=== PATIENT | male | born 1950 | race Two or more races ===

== ENCOUNTER 2020-08-19 13:30 | Outpatient (AMBR) | payer MEDICARE, MEDICAID, SELFPAY ==
--- NOTE | 2020-07-30 13:37 | PT.OIERPT ---
PT OP Initial Eval Patient Information Visit Reasons: post op left shoulder Start of Care: 07/30/20 Initial Assessment Subjective Pt is 70 yr old dutch speaking male s/p arthroscopic left shoulder posterior labral repair, arthroscopic left shoulder biceps tenodesis, arthroscopic left shoulder subacromial decompression, removal of loose bodies glenohumeral joint on 07/01/20 presents to therapy with L abduction sling. He had injured the shoulder lifting a heavy pipe about 6 months ago. PMH: HTN Imaging: X-ray in EMR Pt goal: to reach OH and get L shoulder strength back. Objective L shoulder AROM: FF: 45 deg Abd: 30 deg ER: -5 deg Strength: 3-/5 in all planes PROM: end-range pain with capsular tightness Elbow ROM: full extension Assessment Pt presentation consistent with referring Dx of post op labral repair, SAD, of L shoulder, and biceps tenodesis. ROM limited in capsular pattern with pain that limits end-range tolerance into all planes but especially ER and IR. Pt requires skilled therapy in order to reduce pain, improve strength and ROM and has good rehab potential. Eval followed by HEP Short Term and Marketer Goals 1. Ind with HEP 2. Improved AROM of L shoulder to 135 deg FF, 125 deg abduction and 90 deg ER 3. Improved HBB ROM to L3 4. Pt will reach OH x10 with <=4/10 pain Treatment Plan 1. Manual therapy 2. Therex 3. Modalities as indicated, moist heat pack, ice, electrical stimulation, Frequency and Duration 2x a week for 8 weeks Certification Dates: 07/30/20 to 10/29/20 Office Procedures PT Procedures PT Date of Service: 07/30/20 OP PT Eval Mod Complex 30 minutes: Yes
--- NOTE | 2020-07-31 14:26 | PT.ODAYNRPT ---
PT Outpatient Daily Note Date of Service: 07/31/20 OP Daily Note Visit Reasons: post op left shoulder Outpatient Physical Therapy Treatment Date: 07/31/20 Subjective: Same as time of evaluation Objective: See f/S for therex Assessment: Pt had pain with AAROM today into ERot and abduction and has capsular limitations into Erot. Plan: Continue per POC Length of Time (minutes) of Treatment: 30 Minutes Office Procedures PT Procedures PT Date of Service: 07/31/20 Therapeutic Exercise 30 minutes: Yes PT Procedures PT Date of Service: 07/30/20 OP PT Eval Mod Complex 30 minutes: Yes
--- NOTE | 2020-08-05 14:47 | PT.ODAYNRPT ---
PT Outpatient Daily Note Date of Service: 08/05/20 OP Daily Note Visit Reasons: post op left shoulder Outpatient Physical Therapy Treatment Date: 08/05/20 Subjective: Doing HEP Objective: See f/S for therex MT: PPM into FF, abd and Erot to first resistance x5' Assessment: Poor carryover from last visit with therex. Very limited Erot PROM and pain limited MT tolerance today. Pt had pain with AAROM today into ERot and abduction and has capsular limitations into Erot. Plan: Continue per POC Length of Time (minutes) of Treatment: 30 Minutes Office Procedures PT Procedures PT Date of Service: 07/31/20 Therapeutic Exercise 30 minutes: Yes PT Procedures PT Date of Service: 07/30/20 OP PT Eval Mod Complex 30 minutes: Yes PT Procedures PT Date of Service: 08/05/20 Therapeutic Exercise 30 minutes: Yes
--- NOTE | 2020-08-07 13:21 | PT.ODAYNRPT ---
PT Outpatient Daily Note Date of Service: 08/07/20 OP Daily Note Visit Reasons: post op left shoulder Outpatient Physical Therapy Treatment Date: 08/07/20 Subjective: Not doing HEP of ROM with wand that he was given first day Objective: See f/S for therex MT: PPM into FF, abd and Erot to first resistance x5' Erot PROM: neutral Assessment: Poor carryover from last visit with therex. Very limited Erot PROM and pain limited MT tolerance today. Pt had pain with AAROM today into ERot and abduction and has capsular limitations into Erot. Plan: Continue per POC Length of Time (minutes) of Treatment: 30 Minutes Office Procedures PT Procedures PT Date of Service: 07/31/20 Therapeutic Exercise 30 minutes: Yes PT Procedures PT Date of Service: 07/30/20 OP PT Eval Mod Complex 30 minutes: Yes PT Procedures PT Date of Service: 08/05/20 Therapeutic Exercise 30 minutes: Yes
--- NOTE | 2020-08-13 13:50 | PT.ODAYNRPT ---
PT Outpatient Daily Note Date of Service: 08/13/20 OP Daily Note Visit Reasons: post op left shoulder Outpatient Physical Therapy Treatment Date: 08/13/20 Subjective: He was doing HEP of ROM with wand into Erot and felt a pop in L shoulder and pain but today it's not hurting. Objective: See f/S for therex Erot PROM: 25 deg Assessment: Improved Erot PROM since last visit. Pt had pain with AAROM today into ERot and abduction at end-range and has capsular limitations into Erot. Plan: Continue per POC Length of Time (minutes) of Treatment: 30 Minutes Office Procedures PT Procedures PT Date of Service: 07/31/20 Therapeutic Exercise 30 minutes: Yes PT Procedures PT Date of Service: 08/07/20 Therapeutic Exercise 30 minutes: Yes PT Procedures PT Date of Service: 07/30/20 OP PT Eval Mod Complex 30 minutes: Yes PT Procedures PT Date of Service: 08/05/20 Therapeutic Exercise 30 minutes: Yes PT Procedures PT Date of Service: 08/13/20 Therapeutic Exercise 30 minutes: Yes
--- NOTE | 2020-08-15 14:47 | PTNOTE_ITS ---
PT Outpatient Daily Note Date of Service: 08/15/20 OP Daily Note Visit Reasons: post op left shoulder Outpatient Physical Therapy Treatment Date: 08/15/20 Subjective: He was doing HEP of ROM with wand into Erot and felt a pop in L shoulder and pain but today it's not hurting. Objective: See f/S for therex MT: PPM into Ff, abd and Erot x7' to end-range Erot PROM: 35 deg Assessment: Improved Erot and FF PROM since last visit. Pt has pain at end- range with AAROM into abduction and Erot. Plan: Continue per POC Length of Time (minutes) of Treatment: 30 Minutes Office Procedures PT Procedures PT Date of Service: 07/31/20 Therapeutic Exercise 30 minutes: Yes PT Procedures PT Date of Service: 08/07/20 Therapeutic Exercise 30 minutes: Yes PT Procedures PT Date of Service: 08/15/20 Therapeutic Exercise 30 minutes: Yes PT Procedures PT Date of Service: 07/30/20 OP PT Eval Mod Complex 30 minutes: Yes PT Procedures PT Date of Service: 08/05/20 Therapeutic Exercise 30 minutes: Yes PT Procedures PT Date of Service: 08/13/20 Therapeutic Exercise 30 minutes: Yes
--- NOTE | 2020-08-19 19:48 | PT.ODAYNRPT ---
PT Outpatient Daily Note Date of Service: 08/19/20 OP Daily Note Visit Reasons: post op left shoulder Outpatient Physical Therapy Treatment Date: 08/19/20 Subjective: Pain limits him with HEP Objective: See f/S for therex MT: PPM into Ff, abd and Erot x7' to end-range Erot PROM: 35 deg Assessment: Improved Erot and FF PROM since last visit but pain limits end range tolerance and he has capsular tightness. Pt has pain at end-range with AAROM into abduction and Erot. Plan: Continue per POC Length of Time (minutes) of Treatment: 30 Minutes Office Procedures PT Procedures PT Date of Service: 07/31/20 Therapeutic Exercise 30 minutes: Yes PT Procedures PT Date of Service: 08/07/20 Therapeutic Exercise 30 minutes: Yes PT Procedures PT Date of Service: 08/15/20 Therapeutic Exercise 30 minutes: Yes PT Procedures PT Date of Service: 07/30/20 OP PT Eval Mod Complex 30 minutes: Yes PT Procedures PT Date of Service: 08/05/20 Therapeutic Exercise 30 minutes: Yes PT Procedures PT Date of Service: 08/13/20 Therapeutic Exercise 30 minutes: Yes PT Procedures PT Date of Service: 08/19/20 Therapeutic Exercise 30 minutes: Yes
== END 2020-08-23 23:59 | disposition home or self-care (01) ==
PROVIDERS: PCP Family Medicine; Referring Provider Family Medicine; Visit Provider Orthopaedic Surgery
DX: M25.512 Pain in left shoulder (principal); I10 Essential (primary) hypertension
CPT/HCPCS: 97110; 97162

== ENCOUNTER 2020-09-18 14:25 | Outpatient (AMBR) | payer MEDICARE, MEDICAID, SELFPAY ==
--- NOTE | 2020-08-27 15:04 | PT.ODAYNRPT ---
PT Outpatient Daily Note Date of Service: 08/27/20 OP Daily Note Visit Reasons: post op left shoulder Outpatient Physical Therapy Treatment Date: 08/27/20 Subjective: Pt supported his upper body weight on the L shoulder with outstretched hand the other day and felt sharp pain in the shoulder for a few days. He feels relief with the sling but is not wearing it today. Objective: See F/S for therex Assessment: Pt has difficulty with AROM above shoulder height but with pulleys he can get above shoulder height Plan: Continue rer POC Length of Time (minutes) of Treatment: 30 Minutes Office Procedures PT Procedures PT Date of Service: 08/27/20 Therapeutic Exercise 30 minutes: Yes
--- NOTE | 2020-09-11 10:45 | PT.ODS1RPT ---
PT OP Progress/Discharge Note Date of Service: 09/11/20 Progress Note/DC Note Progress Note/Discharge Note: Progress Note Patient Information Visit Reasons: post op left shoulder Service Continue Service or Discharge: Continue Service Discharge Date: 09/11/20 Status Subjective: Pt returns to therapy after a break since 08/27 because he had a setback when he supported his upper body weight on the L shoulder with outstretched hand the other day and felt sharp pain in the shoulder for a few days. He was given a steroid shot in the L shoulder which has decreased pain. Objective: L shoulder AROM: FF: 120 deg Abd: 120 deg Erot: 45 deg Assessment: Pt has attended the evaluation and 8 Rx visits and made good progress with A/PROM. He can reach up OH with some weakness but is transitioning to AROM well without significant pain. He would benefit from continued therapy in order to continue with AROM and then transition to strengthening per protocol. Plan: Continue per POC Office Procedures PT Procedures PT Date of Service: 09/11/20 Therapeutic Exercise 30 minutes: Yes PT Procedures PT Date of Service: 08/27/20 Therapeutic Exercise 30 minutes: Yes
--- NOTE | 2020-09-16 19:18 | PT.ODAYNRPT ---
PT Outpatient Daily Note Date of Service: 09/16/20 OP Daily Note Visit Reasons: post op left shoulder Outpatient Physical Therapy Treatment Date: 09/16/20 Subjective: Low L shoulder pain today Objective: See F/S for therex Assessment: He can reach up OH with some weakness but is transitioning to AROM well without significant pain. He would benefit from continued therapy in order to continue with AROM and then transition to strengthening per protocol. Plan: Continue per POC Length of Time (minutes) of Treatment: 30 Minutes Office Procedures PT Procedures PT Date of Service: 09/11/20 Therapeutic Exercise 30 minutes: Yes PT Procedures PT Date of Service: 08/27/20 Therapeutic Exercise 30 minutes: Yes PT Procedures PT Date of Service: 09/16/20 Therapeutic Exercise 30 minutes: Yes
--- NOTE | 2020-09-18 18:15 | PT.ODAYNRPT ---
PT Outpatient Daily Note Date of Service: 09/18/20 OP Daily Note Visit Reasons: post op left shoulder Outpatient Physical Therapy Treatment Date: 09/18/20 Subjective: Low L shoulder pain today Objective: See F/S for therex Assessment: He can reach up OH with some weakness but is transitioning to AROM well without significant pain. He would benefit from continued therapy in order to continue with AROM and then transition to strengthening per protocol. Plan: Continue per POC Length of Time (minutes) of Treatment: 30 Minutes Office Procedures PT Procedures PT Date of Service: 09/11/20 Therapeutic Exercise 30 minutes: Yes PT Procedures PT Date of Service: 08/27/20 Therapeutic Exercise 30 minutes: Yes PT Procedures PT Date of Service: 09/16/20 Therapeutic Exercise 30 minutes: Yes PT Procedures PT Date of Service: 09/18/20 Therapeutic Exercise 30 minutes: Yes
== END 2020-09-23 23:59 | disposition home or self-care (01) ==
PROVIDERS: PCP Family Medicine; Referring Provider Family Medicine; Visit Provider Family Medicine
DX: M25.512 Pain in left shoulder (principal); I10 Essential (primary) hypertension
CPT/HCPCS: 97110

== ENCOUNTER 2020-10-17 14:30 | Outpatient (AMBR) | payer MEDICARE, MEDICAID, SELFPAY ==
--- NOTE | 2020-09-26 18:56 | PT.ODAYNRPT ---
PT Outpatient Daily Note Date of Service: 09/26/20 OP Daily Note Visit Reasons: post op left shoulder Outpatient Physical Therapy Treatment Date: 09/26/20 Subjective: Pt reports difficulty with reaching up OH and lifting light objects with L shoulder Objective: See f/S for therex Assessment: Pt has transitioned to AROM but made slow progress with AROM goals due to continued L shoulder irritability. He can reach through ROM with 1 lb dumbell in supine but has limited ROM into abduction and Erot. Plan: Improve AROM and transition to strengthening Length of Time (minutes) of Treatment: 30 Minutes Office Procedures PT Procedures PT Date of Service: 09/26/20 Therapeutic Exercise 30 minutes: Yes
--- NOTE | 2020-10-01 16:50 | PT.ODAYNRPT ---
PT Outpatient Daily Note Date of Service: 10/01/20 OP Daily Note Visit Reasons: post op left shoulder Outpatient Physical Therapy Treatment Date: 10/01/20 Subjective: Pt reports difficulty with reaching up OH and lifting light objects with L shoulder Objective: See f/S for therex Assessment: Pt has transitioned to AROM and now resistive therex with mild L shoulder irritability. He can reach through ROM with 2 lb dumbell in supine but has limited ROM into abduction and Erot. Plan: Continue to transition to strengthening Length of Time (minutes) of Treatment: 30 Minutes Office Procedures PT Procedures PT Date of Service: 09/26/20 Therapeutic Exercise 30 minutes: Yes PT Procedures PT Date of Service: 10/01/20 Therapeutic Exercise 30 minutes: Yes
--- NOTE | 2020-10-03 18:35 | PT.ODAYNRPT ---
PT Outpatient Daily Note Date of Service: 10/03/20 OP Daily Note Visit Reasons: post op left shoulder Outpatient Physical Therapy Treatment Date: 10/03/20 Subjective: Pt reports difficulty with reaching up OH and lifting light objects with L shoulder Objective: See f/S for therex Assessment: Pt has transitioned to AROM and now resistive therex with mild L shoulder irritability. He can reach through ROM with 2 lb dumbell in supine but has limited ROM into abduction and Erot. Plan: Continue to transition to strengthening Length of Time (minutes) of Treatment: 30 Minutes Office Procedures PT Procedures PT Date of Service: 09/26/20 Therapeutic Exercise 30 minutes: Yes PT Procedures PT Date of Service: 10/01/20 Therapeutic Exercise 30 minutes: Yes PT Procedures PT Date of Service: 10/03/20 Therapeutic Exercise 30 minutes: Yes
--- NOTE | 2020-10-15 16:22 | PT.ODAYNRPT ---
PT Outpatient Daily Note Date of Service: 10/15/20 OP Daily Note Visit Reasons: post op left shoulder Outpatient Physical Therapy Treatment Date: 10/15/20 Subjective: Pt reports difficulty with reaching up OH and lifting light objects with L shoulder. He is having ABDIRAHMAN tomorrow afternoon. Objective: See f/S for therex Assessment: Pt has transitioned to strengthening with resistive therex with mild L shoulder irritability. He can reach through ROM with 2 lb dumbell in supine but has limited ROM into abduction and Erot. Plan: Continue after ABDIRAHMAN Length of Time (minutes) of Treatment: 30 Minutes Office Procedures PT Procedures PT Date of Service: 09/26/20 Therapeutic Exercise 30 minutes: Yes PT Procedures PT Date of Service: 10/01/20 Therapeutic Exercise 30 minutes: Yes PT Procedures PT Date of Service: 10/15/20 Therapeutic Exercise 30 minutes: Yes PT Procedures PT Date of Service: 10/03/20 Therapeutic Exercise 30 minutes: Yes
--- NOTE | 2020-10-17 16:36 | PT.ODS1RPT ---
PT OP Progress/Discharge Note Date of Service: 10/17/20 Progress Note/DC Note Progress Note/Discharge Note: Progress Note Patient Information Visit Reasons: post op left shoulder Service Continue Service or Discharge: Continue Service Status Subjective: Pt reports some shoulder soreness after ABDIRAHMAN yesterday Objective: L shoulder ArOM; FF: 125 deg Abd: 120 deg Erot: 50 deg Strength: 4-/5 in all planes Assessment: Pt has attended the eval and 15 Rx visits and made good progress with AROM. PROM has improved after ABDIRAHMAN and he has transitioned to strengthening with resistive therex with mild L shoulder irritability. He would benefit from continued therapy in order to improve shoulder strength and OH reaching tolerance s/p ABDIRAHMAN. Plan: Continue after ABDIRAHMAN for 6 more visits and extend POC dates from 10/29/20 to 11/29/20 Office Procedures PT Procedures PT Date of Service: 09/26/20 Therapeutic Exercise 30 minutes: Yes PT Procedures PT Date of Service: 10/01/20 Therapeutic Exercise 30 minutes: Yes PT Procedures PT Date of Service: 10/15/20 Therapeutic Exercise 30 minutes: Yes PT Procedures PT Date of Service: 10/17/20 OP PT Re-evaluation: Yes PT Procedures PT Date of Service: 10/03/20 Therapeutic Exercise 30 minutes: Yes
== END 2020-10-23 23:59 | disposition home or self-care (01) ==
PROVIDERS: PCP Family Medicine; Referring Provider Family Medicine; Visit Provider Family Medicine
DX: M25.562 Pain in left knee (principal); I10 Essential (primary) hypertension
CPT/HCPCS: 97110; 97164

== ENCOUNTER → 2024-07-04 | Outpatient (CLI) | payer MEDICARE, MEDICAID, SELFPAY ==
[2024-07-04 10:06] LABS: Glucose Estimated Average 108 mg/dL (80-131); Hemoglobin A1C 5.4 % Hgb (4.8-6.0)
[2024-07-04 10:13] LABS: Prostate Specific Antigen 1.25 ng/mL (0-4.00)
[2024-07-04 10:17] LABS: Alanine Aminotransferase 18 U/L (10-49); Albumin, Serum 4.5 gm/dL (3.4-4.8); Albumin/Globulin Ratio 1.9 (1.2-2.2); Alkaline Phosphatase 77 U/L (46-116); Anion Gap 6 (7-16); Aspartate Amino Transferase 19 U/L (0-34); BUN/Creatinine Ratio 20 Ratio (12-20); Bilirubin,Total 0.7 mg/dL (0.3-1.2); Blood Urea Nitrogen 24 mg/dL (9-23); Calcium 9.4 mg/dL (8.3-10.6); Calcium (Corrected) 9.4 mg/dL (8.5-10.1); Carbon Dioxide 24.6 mMol/L (20.0-31.0); Chloride 108 mMol/L (98-107); Cholesterol 136 mg/dL (132-200); Creatinine (Component) 1.2 mg/dL (0.6-1.3); Globulin 2.4 gm/dL (2.3-3.5); Glucose 112 mg/dL (74-106); HDL Cholesterol 34 mg/dL (40-60); LDL Cholesterol,Calculated 77 mg/dL (0-130); Osmolality,Calculated 282 (275-295); Potassium 4.4 mMol/L (3.4-5.1); Sodium 139 mMol/L (136-145); Total Protein 6.9 gm/dL (5.7-8.2); Triglycerides 127 mg/dL (30-150); eGFR > 60 See Note
[2024-07-04 10:56] LABS: Creatinine MALB Rnd Ur 54 mg/dL (30-125); Microalbumin, Random Urine < 3 mg/L (0-300)
== END | disposition home or self-care (01) ==
PROVIDERS: PCP Family Medicine; Referring Provider Family Medicine; Visit Provider Family Medicine
DX: E11.65 Type 2 diabetes mellitus with hyperglycemia (principal); E78.1 Pure hyperglyceridemia; N42.9 Disorder of prostate, unspecified
CPT/HCPCS: 36415; 80053; 80061; 82043; 82570; 83036; 84153

== ENCOUNTER → 2024-08-01 | Outpatient (CLI) | payer MEDICARE, MEDICAID, SELFPAY ==
[2024-08-01 10:18] LABS: Misc Send Out* See Sep Rpt; Quantiferon-TB* See Sep Rpt
[2024-08-01 10:43] LABS: Basophils % (Auto) 0 % (0-2.5); Eosinophils # (Auto) 0.1 Thou/mm3 (0.0-0.5); Eosinophils % (Auto) 2 % (0-10); Hematocrit 44.4 % (41.0-53.0); Hemoglobin 15.8 g/dL (13.5-16.0); Immature Granulocytes % (Auto) 0 % (0-0); Immature Granulocytes Auto 0.01 Thou/mm3 (0.00-0.00); Lymphocytes # (Auto) 2.1 Thou/mm3 (1.0-4.8); Lymphocytes % (Auto) 32 % (10-50); Mean Corpuscular HGB Conc 35.6 g/dl (31.0-37.0); Mean Corpuscular Hemoglobin 31.7 pg (25.0-35.0); Mean Corpuscular Volume 89 fL (80-100); Monocytes # (Auto) 0.4 Thou/mm3 (0.0-0.8); Monocytes % (Auto) 6 % (0-12); Neutrophils % (Auto) 60 % (37-80); Nucleated Red Blood Cell % 0 /100 WBC (0); Platelet Count 173 Thou/mm3 (140-440); Red Blood Count 4.98 Miln/mm3 (4.50-5.90); White Blood Count 6.8 Thou/mm3 (3.8-10.6)
[2024-08-01 10:48] LABS: Prothrombin Time 11.3 Seconds (9.0-12.2)
[2024-08-01 11:03] LABS: Ferritin 67 ng/mL (10.5-307.3)
[2024-08-01 11:05] LABS: Sed Rate (ESR) 5 mm/hr (0-20)
[2024-08-01 12:00] LABS: Alanine Aminotransferase 23 U/L (10-49); Albumin, Serum 4.6 gm/dL (3.4-4.8); Alkaline Phosphatase 79 U/L (46-116); Anion Gap 6 (7-16); Aspartate Amino Transferase 21 U/L (0-34); BUN/Creatinine Ratio 15 Ratio (12-20); Bilirubin,Direct 0.3 mg/dL (0.0-0.3); Bilirubin,Total 1.1 mg/dL (0.3-1.2); Blood Urea Nitrogen 17 mg/dL (9-23); C-Reactive Protein < 0.5 mg/dL (0.0-0.9); Calcium 9.3 mg/dL (8.3-10.6); Chloride 105 mMol/L (98-107); Creatinine (Component) 1.1 mg/dL (0.6-1.3); Glucose 106 mg/dL (74-106); Hepatitis A Antibody IgM Non Reactive (Non React); Hepatitis B Core Antibody IgM Non Reactive (Non React); Hepatitis B Surface Antigen Non Reactive (Non React); Hepatitis C Antibody Non Reactive (Non React); Osmolality,Calculated 275 (275-295); Potassium 4.6 mMol/L (3.4-5.1); Prealbumin 28.9 mg/dL (10.0-40.0); Sodium 137 mMol/L (136-145); Total Protein 7.2 gm/dL (5.7-8.2); eGFR > 60 See Note
[2024-08-04 06:56] LABS: HIV Ag/Ab, 4th Gen NON-REACTIVE
== END | disposition home or self-care (01) ==
LOC: COPL 09:51
PROVIDERS: PCP Family Medicine; Referring Provider Internal Medicine Gastroenterology; Visit Provider Internal Medicine Gastroenterology
DX: R13.10 Dysphagia, unspecified (principal); K64.9 Unspecified hemorrhoids
CPT/HCPCS: 36415; 80048; 80074; 80076; 82728; 84134; 85025; 85610; 85652; 86140; 86480; 87389

== ENCOUNTER → 2024-08-02 | Outpatient (CLI) | payer MEDICARE, MEDICAID, SELFPAY ==
[2024-08-07 06:48] LABS: Helicobacter pylori Ag, Stool* DETECTED (NOT DETECTED)
== END | disposition home or self-care (01) ==
PROVIDERS: Referring Provider Internal Medicine Gastroenterology; Visit Provider Internal Medicine Gastroenterology
DX: K64.9 Unspecified hemorrhoids (principal); R13.10 Dysphagia, unspecified
CPT/HCPCS: 87338

== ENCOUNTER 2024-11-02 07:35 | Day surgery (SDC) | payer MEDICARE, MEDICAID, SELFPAY ==
[2024-11-01 16:00] VITALS: BMI 27.0
[2024-11-02] VITALS (10 sets, daily range): BP systolic 110–165; BP diastolic 66–83; PULSE 55–91; RESP 12–19; TEMP 36.2–37.1; O2SAT 95–100; BMI 26.4
[2024-11-02] MEDS: RINGERS LACTATED 1000 ML 1,000 ML 125 ML IV (08:50)
[2024-11-02] MEDS: LIDOCAINE JELLY 2% (Urojet) 10 ML TUBE TOP (08:51)
[2024-11-02] MEDS: fentaNYL CIT INJ 50 mCg/ML AMP 2ML IVP (08:52)
[2024-11-02] MEDS: MIDAZOLAM INJ 1 MG/ML VIAL 2 ML 2 MG IVP (09:00)
== END 2024-11-02 10:00 | disposition home or self-care (01) ==
PROVIDERS: PCP Family Medicine; Referring Provider Internal Medicine Gastroenterology; Visit Provider Internal Medicine Gastroenterology
PROC: 0DBE8ZX Excision of Large Intestine, Via Natural or Artificial Opening Endoscopic, Diagnostic (ICD-10-PCS; CPT 45380; principal; 2024-11-02 12:15)
DX: K57.30 Diverticulosis of large intestine without perforation or abscess without bleeding (principal); E11.9 Type 2 diabetes mellitus without complications; K62.89 Other specified diseases of anus and rectum; K52.9 Noninfective gastroenteritis and colitis, unspecified; K64.8 Other hemorrhoids
CPT/HCPCS: 45380; J2250; J3010; J7120

== ENCOUNTER 2024-11-28 08:55 | Day surgery (SDC) | payer MEDICARE, MEDICAID, SELFPAY ==
[2024-11-28] VITALS (10 sets, daily range): BP systolic 123–147; BP diastolic 65–78; PULSE 48–63; RESP 11–18; TEMP 36.1–36.7; O2SAT 93–100; BMI 27.0
[2024-11-28] MEDS: RINGERS LACTATED 1000 ML 1,000 ML 125 ML IV (10:40)
[2024-11-28] MEDS: BENZOCAINE 20% (Hurricaine) SPRAY 1 DOSE TOP (10:40)
[2024-11-28] MEDS: MIDAZOLAM INJ 1 MG/ML VIAL 2 ML (ASD USE ONLY) 2 MG IVP (10:41)
[2024-11-28] MEDS: fentaNYL CIT INJ 50 mCg/ML AMP 2ML (ASD USE ONLY) IVP (10:41)
--- NOTE | 2024-11-28 11:28 | SUR.PHASEII ---
1057 patient is awake, alert, breathing unlabored, s/p EGD under IV sedation, report received from Sonia DELACRUZ
--- NOTE | 2024-11-28 12:09 | SUR.PHASEII ---
1157 patient is awake, alert, breathing unlabored, able to tolerate water with no nausea, vomiting or difficulty swallowing, meets discharge criteria, discharge instructions given to patient and grandson, patient discharged home in wheelchair with all belongings.
== END 2024-11-28 11:57 | disposition home or self-care (01) ==
PROVIDERS: PCP Family Medicine; Referring Provider Internal Medicine Gastroenterology; Visit Provider Internal Medicine Gastroenterology
PROC: (CPT 43239; principal; 2024-11-28 10:00)
DX: K29.50 Unspecified chronic gastritis without bleeding (principal); I10 Essential (primary) hypertension; K22.4 Dyskinesia of esophagus
CPT/HCPCS: 43239; J2250; J3010; J7120; A9270

== ENCOUNTER 2025-01-24 11:20 | Day surgery (SDC) | payer MEDICARE, MEDICAID, SELFPAY ==
--- NOTE | 2025-01-23 06:00 | EKG_ITS ---
[facility] Test Date: 2025-01-23 Pat Name: SAMIR PARKER Department: Room: - Gender: Male [employer] Back Tender: CYNTHIA : 1950 Requested By: Parker Jennings Order Number: [id number] Reading MD: Parker Jennings Measurements Intervals [place] Rate: 68 P: 50 [place]: 184 QRS: 61 QRSD: 92 T: 47 QT: 381 QTc: 407 Interpretive Statements SINUS RHYTHM Compared to ECG 06/28/2020 10:11:01 No significant changes /store/S0/[id number].pdf
[2025-01-23 10:04] LABS: Alanine Aminotransferase 22 U/L (10-49); Albumin, Serum 4.5 gm/dL (3.4-4.8); Albumin/Globulin Ratio 1.6 (1.2-2.2); Alkaline Phosphatase 101 U/L (46-116); Anion Gap 8 (7-16); Aspartate Amino Transferase 25 U/L (0-34); BUN/Creatinine Ratio 14 Ratio (12-20); Bilirubin,Total 0.3 mg/dL (0.3-1.2); Blood Urea Nitrogen 14 mg/dL (9-23); Calcium 9.7 mg/dL (8.3-10.6); Calcium (Corrected) 9.7 mg/dL (8.5-10.1); Carbon Dioxide 25.0 mMol/L (20.0-31.0); Chloride 106 mMol/L (98-107); Creatinine (Component) 1.0 mg/dL (0.6-1.3); Globulin 2.8 gm/dL (2.3-3.5); Glucose 115 mg/dL (74-106); Osmolality,Calculated 279 (275-295); Potassium 3.9 mMol/L (3.4-5.1); Sodium 139 mMol/L (136-145); Total Protein 7.3 gm/dL (5.7-8.2); eGFR > 60 See Note
[2025-01-24] VITALS (8 sets, daily range): BP systolic 142–168; BP diastolic 74–83; PULSE 55–68; RESP 16–20; TEMP 36.6–36.9; O2SAT 95–98; BMI 27.6
[2025-01-24] MEDS: RINGERS LACTATED 1000 ML 1,000 ML 20 ML IV (15:06)
[2025-01-24] MEDS: BENZOCAINE 20% (Hurricaine) SPRAY 1 DOSE TOP (15:11)
--- NOTE | 2025-01-24 15:28 | SUR.PHASEII ---
1528 Patient arrived to recovery resting comfortably in [facility], on oxygen nasal cannula 3L, breathing unlabored, vital signs stable, denies pain and nausea, report received from Kayla DELACRUZ and Dr. Knox
--- NOTE | 2025-01-24 16:24 | SUR.PHASEII ---
1624 Patient meets discharge criteria from recovery, awake and alert, breathing unlabored, vital signs stable, denies pain and nausea, assisted with dressing into his clothing by his daughter, discharge instructions given to patient and patients daughter with the assistance of the telephone motor vehicle parts interpreter Cory ID#[id number], patients daughter signed discharge instructions. Patient given all her belongings prior to discharge, transported via wheelchair and left in a private vehicle.
== END 2025-01-24 16:24 | disposition home or self-care (01) ==
PROVIDERS: Anesthesiology; PCP Family Medicine; Referring Provider Internal Medicine Gastroenterology; Visit Provider Internal Medicine Gastroenterology
PROC: (CPT 43239; principal; 2025-01-24 13:00)
DX: K22.2 Esophageal obstruction (principal); K44.9 Diaphragmatic hernia without obstruction or gangrene; Z01.810 Encounter for preprocedural cardiovascular examination
CPT/HCPCS: 43249; 43239; 36415; 80053; 93005; A4649; C1726; J7120; A9270

== ENCOUNTER → 2025-02-06 | Outpatient (CLI) | payer MEDICARE, MEDICAID, SELFPAY ==
[2025-02-06 11:32] LABS: Urea Breath Test Negative (Negative)
== END | disposition home or self-care (01) ==
LOC: COPL 09:26
PROVIDERS: PCP Family Medicine; Referring Provider Internal Medicine Gastroenterology; Visit Provider Internal Medicine Gastroenterology
DX: Z01.89 Encounter for other specified special examinations (principal); B96.81 Helicobacter pylori [H. pylori] as the cause of diseases classified elsewhere
CPT/HCPCS: 83013; 83014

== ENCOUNTER → 2025-02-07 | Outpatient (CLI) | payer MEDICARE, MEDICAID, SELFPAY ==
[2025-02-28 08:43] LABS: Helicobacter pylori Ag, Stool* SEE SEP RPT
== END | disposition home or self-care (01) ==
LOC: SLDO 11:22
PROVIDERS: Referring Provider Internal Medicine Gastroenterology; Visit Provider Internal Medicine Gastroenterology
DX: Z01.89 Encounter for other specified special examinations (principal); B96.81 Helicobacter pylori [H. pylori] as the cause of diseases classified elsewhere
CPT/HCPCS: 87338